=== PATIENT | male | born 1955 | race Caucasian/White ===

== ENCOUNTER 2017-08-02 06:28 | Day surgery (SDC) | payer BC, OTHER ==
[~2017-08-02 06:28] MED LIST: Lactated Ringers 1,000 ML IV SCH
[2017-08-02] MEDS ORDERED: fentaNYL 100 MCG/2 ML SDV ONE (07:43)
[2017-08-02] MEDS ORDERED: Propofol 200 MG/20 ML SDV ONE (07:43)
--- NOTE | 2017-08-02 08:52 | OR ---
PREOPERATIVE DIAGNOSIS: Screening colonoscopy. POSTOPERATIVE DIAGNOSIS: Normal colonoscopic exam. PROCEDURE PROPOSED AND PROCEDURE DONE: Total flexible colonoscopy. INDICATION: This is a 62-year-old gentleman referred for screening colonoscopy with this being his 1st examination. He denies any symptomatology and he has a negative family history for colon cancer. TECHNIQUE: The patient brought to the endoscopy suite and placed in left lateral decubitus position. He was sedated per [facility] with propofol. The flexible video colonoscope was then passed transanally and under visualization advanced to the cecum. Examination revealed a normal ascending, transverse, descending, sigmoid, and rectal colon. There was no evidence of any diverticulosis, polyps, colitis, or any other abnormalities, and the scope was then withdrawn. The patient tolerated procedure well. FINAL IMPRESSION: Essentially normal colonoscopic exam. PLAN: The patient is reassured. I felt he could wait 10 years before he needs a repeat screening colonoscopy. SCM: 08/02/2017 07:57:34 MODL: 08/02/2017 08:43:05 /[id number]
== END 2017-08-02 08:55 | disposition home or self-care (01) ==
LOC: VM.SDS 06:28
PROVIDERS: ATTEND Surgery
DX: Z12.11 Encounter for screening for malignant neoplasm of colon (principal); I10 Essential (primary) hypertension; K29.50 Unspecified chronic gastritis without bleeding; E78.2 Mixed hyperlipidemia; H52.4 Presbyopia; H52.10 Myopia, unspecified eye; H52.209 Unspecified astigmatism, unspecified eye; J30.2 Other seasonal allergic rhinitis; Z87.891 Personal history of nicotine dependence; Z79.82 Long term (current) use of aspirin; Z79.84 Long term (current) use of oral hypoglycemic drugs; Z79.899 Other long term (current) drug therapy; Z90.89 Acquired absence of other organs; Z98.890 Other specified postprocedural states
CPT/HCPCS: 45378; 82962; J2704; J3010; J7120